=== PATIENT | female | born 1985 | race Caucasian/White ===

== ENCOUNTER 2017-09-25 01:12 | Emergency (ER) | payer OTHER ==
[~2017-09-25] VITALS: Ht 160 cm; Wt 52.6 kg
[2017-09-25 01:20] VITALS: BP 128/70
[2017-09-25] MEDS ORDERED: METRONIDAZOLE250 MG ORAL (01:27)
[2017-09-25] MEDS ORDERED: [UNRECOGNIZED DRUG - OTHER] (01:27)
[2017-09-25] MEDS ORDERED: LEVOTHYROXINE75 MCG ORAL (01:27)
[2017-09-25] MEDS ORDERED: [UNRECOGNIZED DRUG - OTHER] (01:27)
--- NOTE | 2017-09-25 01:49 | Emergency Room Report ---
History of Present Illness General Chief Complaint: Abdominal Pain Source: Patient Present Illness HPI Is a 32-year-old female with no past medical history. [place] She presents with chief point abdominal pain with diarrhea for last 2 days. Initially he felt subjective fever. Nauseous but no vomiting. Epigastric pain. Pain is 8 out of 10. [place] very dehydrated week. Worse with standing and walking. Better with rest. No vomiting blood. Diarrhea is watery. Allergies: Coded Allergies: CIPROFLOXACIN (Verified Allergy, Unknown, 09/25/17) Patient History Past Medical History: see triage record, old chart reviewed Past Surgical History: none Pertinent Family History: none Social History: Denies: smoking Last Menstrual Period: 09/18/2017 Now: No Immunizations: other Reviewed Nursing Documentation: PMH: Agreed; PSxH: Agreed Nursing Documentation-PMH Past Medical History: No History, Except For Review of Systems Constitutional: Reports: fever Eye: Denies: eye pain, blurred vision ENT: Denies: ear pain, nose congestion, throat swelling Respiratory: Denies: cough, shortness of breath Cardiovascular: Denies: chest pain, palpitations Gastrointestinal: Reports: abdominal pain, diarrhea, nausea; Denies: vomiting Musculoskeletal: Denies: back pain, joint pain Skin: Denies: rash Neurological: Denies: headache, numbness Endocrine: Denies: increased thirst, increased urine Hematologic/Lymphatic: Denies: easy bruising All Other Systems: negative except mentioned in HPI Physical Exam Vital Signs Date Time Temp Pulse Resp B/P (MAP) Pulse Ox O2 Delivery O2 Flow Rate FiO2 09/25/17 01:17 98.1 106 20 151/69 98 Room Air 98.1 vitals with high blood pressure Sp02 EP Interpretation: reviewed, normal General Appearance: well appearing, no apparent distress, alert Head: normocephalic, atraumatic Eyes: bilateral eye PERRL, bilateral eye EOMI ENT: hearing grossly normal, normal pharynx Neck: full range of motion, supple, no meningismus Respiratory: chest non-tender, lungs clear, normal breath sounds Cardiovascular #1: regular rate, rhythm, no murmur Gastrointestinal: normal bowel sounds, no mass, no organomegaly, no bruit, non- distended, tenderness - Epigastric Musculoskeletal: back normal, gait/station normal, normal range of motion Psychiatric: mood/affect normal Skin: warm/dry Medical Decision Making Diagnostic Impression: Primary Impression: Abdominal pain Qualified Codes: R10.84 - Generalized abdominal pain Additional Impression: Diarrhea Qualified Codes: R19.7 - Diarrhea, unspecified ER Course Issue with abdominal pain, cramps, severe diarrhea and fever. This may be infectious diarrhea or dysentery. We'll go ahead and put her on antibiotics. No evidence of obstruction. No evidence of acute abdomen. Lab Results Impression labs unremarkable CT/MRI/US Diagnostic Results CT/MRI/US Diagnostic Results : Imaging Test Ordered: CT abdomen and pelvis Impression Read by radiologist. No acute abdomen. Last Vital Signs Date Time Temp Pulse Resp B/P (MAP) Pulse Ox O2 Delivery O2 Flow Rate FiO2 09/25/17 01:17 98.1 106 20 151/69 98 Room Air 98.1 Status: improved Disposition: HOME, SELF-CARE Condition: Stable Scripts Ibuprofen* (MOTRIN*) 600 Mg Tablet 600 MG ORAL THREE TIMES A DAY, #30 TAB 0 Refills Prov: AMANUEL WANG M.D. 09/25/17 Azithromycin* (ZITHROMAX*) 250 Mg Tablet 500 MG ORAL DAILY for 2 Days, TAB Prov: AMANUEL WANG M.D. 09/25/17 Additional Instructions: Follow-up with your in 2-3 days if not better. Return if worse. AMANUEL WANG M.D. Sep 25, 2017 01:49
[2017-09-25] MEDS ORDERED: Ketorolac 30mg Inj IV ONE (02:00)
[2017-09-25 02:07] LABS: BASOPHILS % (AUTO) 0.4 % (0.0-2.0); EOSINOPHILS % (AUTO) 0.1 % (0.0-3.0); HEMATOCRIT 46.2 % (37.0-47.0); HEMOGLOBIN 14.8 G/DL (12.0-16.0); LYMPHOCYTES % (AUTO) 14.5 % (20.0-45.0); MEAN CORPUSCULAR VOLUME 81 FL (80-99); MONOCYTES % (AUTO) 7.6 % (1.0-10.0); NEUTROPHILS % (AUTO) 77.4 % (45.0-75.0); PLATELET COUNT 334 K/UL (150-450); RED CELL DISTRIBUTION WIDTH 11.9 % (11.6-14.8); WHITE BLOOD COUNT 8.4 K/UL (4.8-10.8)
[2017-09-25 02:08] LABS: APPEARANCE,URINE CLEAR; BILIRUBIN, URINE NEGATIVE (NEGATIVE); COLOR,URINE PALE YELLOW; GLUCOSE, URINE (UA) NEGATIVE (NEGATIVE); KETONES,URINE 4+ (NEGATIVE); LEUKOCYTE ESTERASE ,URINE NEGATIVE (NEGATIVE); NITRITE,URINE NEGATIVE (NEGATIVE); PH,URINE 6 (4.5-8.0); PROTEIN,URINE NEGATIVE (NEGATIVE); UROBILINOGEN,URINE NORMAL MG/DL (0.0-1.0)
[2017-09-25 02:21] LABS: ANION GAP 14 mmol/L (5-15); BLOOD UREA NITROGEN 6 mg/dL (7-18); CALCIUM 9.5 MG/DL (8.5-10.1); CARBON DIOXIDE 24 MMOL/L (21-32); CHLORIDE 100 MMOL/L (98-107); CREATININE 0.9 MG/DL (0.55-1.30); POTASSIUM 3.3 MMOL/L (3.5-5.1); SODIUM 137 MMOL/L (136-145)
[2017-09-25 02:26] LABS: ALANINE AMINOTRANSFERASE 33 U/L (12-78); ALBUMIN 5.1 G/DL (3.4-5.0); ALBUMIN/GLOBULIN RATIO 1.2 (1.0-2.7); ALKALINE PHOSPHATASE 59 U/L (46-116); ASPARTATE AMINO TRANSFERASE 22 U/L (15-37); BILIRUBIN,TOTAL 0.9 MG/DL (0.2-1.0)
[2017-09-25] MEDS ORDERED: Morphine Sulfate 4mg/ml Inj (IV USE ONLY) IVP ONE (02:45)
[2017-09-25 03:00] VITALS: BP 116/75
[2017-09-25] MEDS ORDERED: Isovue-300 100ml vial INJ PRN (03:00)
[2017-09-25] MEDS ORDERED: IBUPROFEN600 MG ORAL (04:54)
[2017-09-25] MEDS ORDERED: ZITHROMAX250 MG ORAL (04:54)
[2017-09-25] MEDS ORDERED: Azithromycin 250mg tab ORAL ONE (05:00)
[2017-09-25 05:19] VITALS: BP 114/78
[2017-09-25 05:22] VITALS: BP 114/78
--- NOTE | 2017-09-25 10:17 | Diagnostic Imaging Report ---
Clinical Indication: Abdominal pain for 3 days Technique: No oral contrast utilized, per emergency room physician request IV administration nonionic contrast. Venous phase spiral acquisition obtained through the abdomen and pelvis. Multiplanar reconstructions were generated. Total dose length product 441.92 mGycm. CTDIvol(s) 9.23 mGy. Dose reduction achieved using automated exposure control Comparison: none Findings: There is a small amount of free pelvic fluid. What is probably a normal appendix is demonstrated. No evidence of diverticulosis or diverticulitis. No small bowel distention. No free intraperitoneal gas demonstrated. Distal esophagus, stomach, duodenum are unremarkable. There is mild periportal edema. No focal hepatic abnormality. The gallbladder is unremarkable. The bile ducts are nondilated. The pancreas, spleen, adrenals are unremarkable. The kidneys demonstrate subcentimeter low-attenuation lesions which are too small to characterize. No retroperitoneal or mesenteric mass or adenopathy. No pelvic mass or adenopathy. The included lung bases demonstrate minimal linear atelectasis or scarring. The bones are unremarkable. Impression: Mild periportal edema. This is nonspecific, but could indicate hepatic inflammation. Correlate with liver function tests No acute process otherwise Minimal free pelvic fluid, most likely physiologic Subcentimeter low-attenuation renal lesions, too small to characterize, most likely benign simple cysts. No further follow-up necessary This agrees with the preliminary interpretation provided overnight by [facility]. The CT scanner at [facility] is accredited by the [employer] and the scans are performed using protocols designed to limit radiation exposure to as low as reasonably achievable to attain images of sufficient resolution adequate for diagnostic evaluation.
== END 2017-09-25 05:30 | disposition home or self-care (01) ==
LOC: EMR 01:54
DX: R10.84 Generalized abdominal pain (principal); R19.7 Diarrhea, unspecified
CPT/HCPCS: 36415; 74177; 80053; 81003; 81025; 83690; 85025; 96361; 96374; 96375; 96376; 99285; J1885; J2270; J2405; Q9967